=== PATIENT | female | born 1965 | race Caucasian/White ===

== ENCOUNTER 2020-03-14 21:33 | Emergency (ER) | payer BC, OTHER ==
[2020-03-14] MEDS ORDERED: Lactated Ringers 1,000 ML IV ONE (21:59)
[2020-03-14] MEDS ORDERED: Ketorolac 30 MG/ML SDV IVPUSH ONE (22:00)
--- NOTE | 2020-03-14 22:23 | EDM.PDOC ---
ED HPI GENERAL MEDICAL PROBLEM - General Chief Complaint: Flank Pain Stated Complaint: BACK PAIN Time Seen by Provider: 03/14/20 22:10 Source of Information: Reports: Patient, RN. Denies: Old Records History Limitations: Reports: Other (no old records) - History of Present Illness INITIAL COMMENTS - FREE TEXT/NARRATIVE: 54 yo female from [facility] presents with R flank area pain on and off for several weeks. She usually takes Aleve and gets relief, but was out of this med so was convinced by co-workers to come to the ER. No fever. No gross hematuria or dysuria. Denies trauma to this area. Pain is worse with coughing, deep breathing and moving. Had a mammogram in the fall that was negative. Denies rash to this area. Is from [facility] and does not think she will be home for a year. Is not a smoker. Sx's non-stop for about 4 mos she thinks, although the pain does wax and wane. Onset: Unknown/Unsure Duration: Week(s):, Waxing/Waning Location: Reports: Chest Quality: Reports: Sharp, Stabbing Severity: Moderate Improves with: Reports: Rest Worsens with: Reports: Movement Context: Reports: Other (See HPI) Associated Symptoms: Reports: Chest Pain. 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) Right Flank Pain Score (Numeric/FACES): 8 - Related Data Allergies Allergy/AdvReac Type Severity Reaction Status Date / Time Penicillins Allergy Severe Swelling Verified 03/14/20 21:52 Home Meds: Home Meds Citalopram Hydrobromide [Celexa] 40 mg PO DAILY 03/14/20 [History] Omeprazole 40 mg PO DAILY 03/14/20 [History] glipiZIDE [Glucotrol XL] 5 mg PO BRK 03/14/20 [History] Past Medical History HEENT History: Reports: Allergic Rhinitis, Hard of Hearing, Impaired Vision, Sinusitis Respiratory History: Reports: Asthma, SOB Gastrointestinal History: Reports: Colon Polyp, GERD, Hiatal Hernia Genitourinary History: Reports: Other (See Below) Other Genitourinary History: December 2019 blood work indicated that 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: Endometriosis, Polycystic Ovaries Musculoskeletal History: Reports: Arthritis, Fracture, Osteoarthritis Neurological History: Reports: Migraines Psychiatric History: Reports: Anxiety, Depression, Panic Attack, PTSD Endocrine/Metabolic History: Reports: Diabetes, Type II, Obesity/BMI 30+ - Infectious Disease History Infectious Disease History: Reports: Chicken Pox, Influenza, Measles, Mumps - Past Surgical History GI Surgical History: Reports: Appendectomy, Cholecystectomy, Colonoscopy, Polypectomy Female Surgical History: Reports: Hysterectomy, Salpingo-Oophorectomy Musculoskeletal Surgical History: Reports: Knee Replacement Social & Family History - Tobacco Use Tobacco Use Status *Q: Never Tobacco User - Caffeine Use Caffeine Use: Reports: Soda - Recreational Drug Use Recreational Drug Use: No ED ROS GENERAL - Review of Systems Review Of Systems: See Below Constitutional: Reports: No Symptoms HEENT: Reports: No Symptoms Respiratory: Reports: Pleuritic Chest Pain (R flank area). Denies: Shortness of Breath, Cough, Sputum, Hemoptysis Cardiovascular: Reports: Chest Pain (R posterior chest wall). Denies: Dyspnea on Exertion, Edema, Lightheadedness, Orthopnea, Palpitations Endocrine: Reports: No Symptoms GI/Abdominal: Reports: No Symptoms : Reports: No Symptoms Musculoskeletal: Reports: No Symptoms Skin: Reports: No Symptoms Neurological: Reports: No Symptoms Psychiatric: Reports: No Symptoms ED EXAM, GENERAL - Physical Exam Exam: See Below Exam Limited By: No Limitations General Appearance: Alert, WD/WN, No Apparent Distress Eye Exam: Bilateral Eye: Normal Inspection Ears: Normal External Exam, Normal Canal, Hearing Grossly Normal Ear Exam: Bilateral Ear: Auricle Normal, Canal Normal Nose: Normal Inspection, No Blood Throat/Mouth: Normal Inspection, Normal Lips, Normal Oropharynx, Normal Voice, No Airway Compromise Head: Atraumatic, Normocephalic Neck: Normal Inspection Respiratory/Chest: No Respiratory Distress, Lungs Clear, Normal Breath Sounds, No Accessory Muscle Use. No: Chest Non-Tender (tender with palpation over the right flank) Cardiovascular: Regular Rate, Rhythm, No Edema GI/Abdominal: Normal Bowel Sounds, Soft, Non-Tender, No Distention Back Exam: Normal Inspection, CVA Tenderness (R) (tender on ribs). No: CVA Tenderness (L), Vertebral Tenderness Extremities: Normal Inspection, Normal Range of Motion, Non-Tender, No Pedal Edema Neurological: Alert, Oriented, CN II-XII Intact, Normal Cognition, No Motor/Sensory Deficits Psychiatric: Normal Affect, Normal Mood Skin Exam: Warm, Dry, Intact, Normal Color, No Rash Course - Vital Signs Last Recorded V/S: Last Vital Signs Temp 36.9 C 03/14/20 22:07 Pulse 84 03/14/20 22:07 Resp 16 03/14/20 22:07 BP 143/80 H 03/14/20 22:07 Pulse Ox 97 03/14/20 22:07 - Orders/Labs/Meds Labs: Laboratory Tests 03/14/20 03/14/20 Range/Units 21:42 23:05 Sodium 143 (140-148) mmol/L Potassium 3.9 (3.6-5.2) mmol/L Chloride 107 (100-108) mmol/L Carbon Dioxide 26 (21-32) mmol/L Anion Gap 10.1 (5.0-14.0) mmol/L BUN 13 (7-18) mg/dL Creatinine 1.0 (0.6-1.0) mg/dL Est Cr Clr Drug Dosing 64.12 mL/min Estimated GFR (MDRD) 58 L (>60) Glucose 211 H (74-106) mg/dL Calcium 8.5 (8.5-10.1) mg/dL Total Bilirubin 0.3 (0.2-1.0) mg/dL AST 16 (15-37) U/L ALT 33 (12-78) U/L Alkaline Phosphatase 118 H (46-116) U/L C-Reactive Protein 1.07 H (0.0-0.3) mg/dL Total Protein 6.2 L (6.4-8.2) g/dL Albumin 2.9 L (3.4-5.0) g/dL Globulin 3.3 (2.3-3.5) g/dL Albumin/Globulin Ratio 0.9 L (1.2-2.2) Urine Color Yellow (YELLOW) Urine Appearance Clear (CLEAR) Urine pH 5.5 (5.0-8.0) Ur Specific Forks >= 1.030 (1.008-1.030) Urine Protein Negative (NEGATIVE) mg/dL Urine Glucose (UA) 500 H (NEGATIVE) mg/dL Urine Ketones Negative (NEGATIVE) mg/dL Urine Occult Blood Negative (NEGATIVE) Urine Nitrite Negative (NEGATIVE) Urine Bilirubin Negative (NEGATIVE) Urine Urobilinogen 0.2 (0.2-1.0) EU/dL Ur Leukocyte Esterase Negative (NEGATIVE) Urine RBC 0-5 (0-5) Urine WBC 0-5 (0-5) Ur Epithelial Cells Few Amorphous Sediment Not seen Urine Bacteria Occasional Urine Mucus Occasional Meds: Medications Discontinued Medications Generic Name Dose Route Start Last Admin Trade Name Freq PRN Reason Stop Dose Admin Lactated Ringer's 1,000 mls @ 1,000 mls/hr 03/14/20 21:59 03/14/20 22:39 Ringers, Lactated IV 03/14/20 22:58 1,000 mls/hr BOLUS ONE Administration Sodium Chloride 80 mls @ 3 mls/sec 03/14/20 23:12 03/14/20 23:25 Normal Saline IV 03/14/20 23:13 3 mls/sec ASDIRECTED STA Administration Iopamidol 100 ml 03/14/20 23:12 03/14/20 23:25 Isovue-300 (61%) IV 03/14/20 23:13 100 ml . DIRECTED STA Administration Ketorolac Tromethamine 30 mg 03/14/20 22:00 03/14/20 22:36 Toradol IVPUSH 03/14/20 22:01 30 mg ONETIME ONE Administration - Radiology Interpretation Free Text/Narrative:: CXR and R ribs-neg CT Chest with contrast/pelvis and abdomen with contrast- IMPRESSION: 1. Fatty infiltration of the liver. 2. Mild colonic diverticulosis. 3. Aristides hepatis adenopathy. This is nonspecific although most commonly seen in underlying liver disease. 4. Right lobe thyroid nodule. Follow-up outpatient thyroid ultrasound may have improved characterization. Please note that all CT scans at this facility use dose modulation, iterative reconstruction, and/or weight-based dosing when appropriate to reduce radiation dose to as low as reasonably achievable. Dictated by Ben Powell MD @ Mar 14 2020 11:55PM CT Results Date: 03/14/20 Departure - Departure Time of Disposition: 00:20 Disposition: Home, Self-Care 01 Clinical Impression: Elevated blood sugar, Rib pain on right side - Discharge Information *PRESCRIPTION DRUG MONITORING PROGRAM REVIEWED*: Not Applicable *COPY OF PRESCRIPTION DRUG MONITORING REPORT IN PATIENT VAL: Not Applicable Instructions: Chest Wall Pain, [id number], Hyperglycemia, [id number] Referrals: PCP,None [Primary Care Provider] - Forms: ED Department Discharge Additional Instructions: Increase your glipizide to twice daily. Continue Aleve as needed for pain relief per package instructions. Add acetaminophen as needed for added relief. Recheck with a local clinic provider during to day to discuss whether a bone scan may be warranted. Sepsis Event Note (ED) - Evaluation Sepsis Screening Result: No Definite Risk - Focused Exam Vital Signs: Vital Signs Temp Pulse Resp BP Pulse Ox 03/14/20 22:07 36.9 C 84 16 143/80 H 97 03/14/20 22:06 36.9 C 84 16 143/80 H 97
--- NOTE | 2020-03-14 22:55 | CRLCR ---
INDICATION: Pain TECHNIQUE: Chest and right ribs 3 views. COMPARISON: None FINDINGS: Cardiovascular and mediastinum: Heart size and vasculature are normal in caliber and appearance. Mediastinum is within normal limits. Lungs and pleural spaces: Lungs are clear. No sign of infiltrate or mass. No sign of pleural effusion. No pneumothorax. Bones and soft tissues: Detailed oblique images of the right ribs demonstrate no fractures or bone lesions. Right upper quadrant surgical clips. IMPRESSION: Unremarkable chest and right ribs. Dictated by Ben Powell MD @ Mar 14 2020 10:49PM Signed by Dr. Ben Powell @ Mar 14 2020 10:54PM
[2020-03-14] MEDS ORDERED: Iopamidol 612 MG/ML 100 ML Bottle IV STA (23:12)
[2020-03-14] MEDS ORDERED: Sodium Chloride 0.9% 80 ML IV STA (23:12)
--- NOTE | 2020-03-15 00:06 | CRLCT ---
INDICATION: Right-sided rib pain for 4 months. TECHNIQUE: CT chest, abdomen and pelvis acquired with 100 cc Isovue-300 intravenous contrast. COMPARISON: None. FINDINGS: CHEST: Mediastinum and brenden: Hypodense nodule right lobe of the thyroid measuring 11 millimeters. No enlarged mediastinal lymph nodes. No pericardial effusion. Thoracic aorta is normal in caliber. Small hiatal hernia. Lungs and pleura: No pleural effusion or pneumothorax. Chest wall and axilla: No mass or adenopathy. Bones: No suspicious bone lesions. Unremarkable for age. ABDOMEN AND PELVIS: Liver: Diffusely decreased density of the liver consistent with fatty infiltration without focal lesion. Aristides hepatis lymph nodes measure up to 13 millimeters in short axis. Gallbladder and bile ducts: Status post cholecystectomy. Pancreas: Unremarkable. Spleen: Unremarkable. Adrenal glands: Unremarkable. Kidneys: Unremarkable. GI tract: No dilated loops of large or small intestine. Suture line at the cecal tip suggesting prior appendectomy. Mild colonic diverticulosis. Vascular structures: Unremarkable. Pelvic Organs: Bladder unremarkable. Status post hysterectomy. Bones: Degenerative disc disease L5-S1. IMPRESSION: 1. Fatty infiltration of the liver. 2. Mild colonic diverticulosis. 3. Aristides hepatis adenopathy. This is nonspecific although most commonly seen in underlying liver disease. 4. Right lobe thyroid nodule. Follow-up outpatient thyroid ultrasound may have improved characterization. Please note that all CT scans at this facility use dose modulation, iterative reconstruction, and/or weight-based dosing when appropriate to reduce radiation dose to as low as reasonably achievable. Dictated by Ben Powell MD @ Mar 14 2020 11:55PM Signed by Dr. Ben Powell @ Mar 15 2020 12:04AM
== END 2020-03-15 00:30 | disposition home or self-care (01) ==
LOC: JP.ED 21:33
DX: R07.81 Pleurodynia (principal); E11.65 Type 2 diabetes mellitus with hyperglycemia; J45.909 Unspecified asthma, uncomplicated; K21.9 Gastro-esophageal reflux disease without esophagitis; E66.9 Obesity, unspecified; Z68.37 Body mass index [BMI] 37.0-37.9, adult; Z88.0 Allergy status to penicillin; Z79.899 Other long term (current) drug therapy; Z79.84 Long term (current) use of oral hypoglycemic drugs
CPT/HCPCS: 36415; 71101; 71260; 74177; 80053; 81001; 86140; 96374; 99284; J1885; J7120; Q9967